=== PATIENT | male | born 1995 | race Two or more races ===

== ENCOUNTER 2019-06-16 16:11 | Emergency (ER) | payer SELFPAY ==
[2019-06-16] MEDS ORDERED: Sodium Chloride 0.9% 1,000 ML IV ONE (16:26)
[2019-06-16] MEDS ORDERED: HYDROmorphone 1 MG/ML Syringe IVPUSH PRN (16:26)
--- NOTE | 2019-06-16 17:06 | EDM.PDOC ---
ED [facility] GENERAL MEDICAL PROBLEM - General Chief Complaint: Abdominal Pain Stated Complaint: RIGHT SIDE PAIN Time Seen by Provider: 06/16/19 16:14 - History of Present Illness INITIAL COMMENTS - FREE TEXT/NARRATIVE: HPI 23-year-old male with no known pertinent past medical history presents for evaluation of ~1 hour of right lower quadrant pain that is moderate, nonradiating, and is provoked by pressure. No fevers, chills, nausea, dysuria, urinary frequency, diarrhea, constipation. M/S/F/SocHx notable for: please see HPI; remainder reviewed with patient and in chart. ROS: Negative constitutional, eye, cardiovascular, pulmonary, GI, , MSK, skin , neurologic, psychiatric, endocrine unless noted in the HPI. Exam HR 83, RR 17, BP 120/76, T 36.2C, SaO2 97% on room air. Gen: Pleasant, non-toxic appearing, resting in mild discomfort. HEENT: NC, AT, PEERL, EOMI. Resp: Clear to auscultation bilaterally, normal work of breathing, no accessory muscle usage. Card: Regular rate and rhythm with no murmurs, rubs, or gallops, extremities warm and well perfused. GI: right lower quadrant tenderness palpation, no rebound or guarding, remainder of abdomen nontender to palpation. : No suprapubic tenderness to palpation. MSK: No visible deformities, strength and tone without visually appreciable deficit. Skin: Normal color with no visible lesions. Neuro: alert and oriented 3, no facial asymmetry, vision and hearing WNL. Psych: Mood and affect appropriate. Labs / Imaging: pending. MDM Previous chart, nursing note, labs, imaging, and vitals reviewed. A: 23-year-old male with no known pertinent past medical history presents for evaluation of ~1 hour of right lower quadrant pain that is moderate, nonradiating, and is provoked by pressure. DDx: acute appendicitis, constipation, diverticulitis, mesenteric adenitis, epiploic appendagitis, biliary disease (cholelithiasis, choledocholithiasis, cholangitis, cholecystitis), pancreatitis, uretolithiasis. ED Course: patient evaluate, discuss recommendation for imaging, laboratory studies, and then further care as appropriate. PRN pain control order. Immediately after leaving the room the patient appears to have had a change of wish to receive care, discuss leaving AMA with the ED commercial service technician, signed AMA form and departed from the emergency department. I was unable to return to discuss this further with the patient prior to his departure. The patient was alert, oriented, and of sound mind and with intact judgment of the time of his evaluation and had good understanding of the plan of care and the concern for acute appendicitis as well as the concern that this could be a potentially life- threatening process. Impression: abdominal pain. Right Upper Abdomen Pain Score (Numeric/FACES): 7 - Related Data Allergies Allergy/AdvReac Type Severity Reaction Status Date / Time No Known Allergies Allergy Verified 06/16/19 16:16 Home Meds: Home Meds . [No Known Home Meds] 06/16/19 [History] Past Medical History - Past Health History Medical/Surgical History: Denies Medical/Surgical History HEENT History: Reports: None Cardiovascular History: Reports: None Respiratory History: Reports: None Gastrointestinal History: Reports: None Genitourinary History: Reports: None Musculoskeletal History: Reports: None Neurological History: Reports: None Psychiatric History: Reports: None Endocrine/Metabolic History: Reports: None Hematologic History: Reports: None Immunologic History: Reports: None Oncologic (Cancer) History: Reports: None Dermatologic History: Reports: None - Infectious Disease History Infectious Disease History: Reports: None - Past Surgical History Head Surgeries/Procedures: Reports: None Social & Family History - Family History Family Medical History: Noncontributory - Tobacco Use Smoking Status *Q: Current Every Day Smoker Years of Tobacco use: 1 Packs/Tins Daily: 0.5 Used Tobacco, but Quit: No Second Hand Smoke Exposure: No - Caffeine Use Caffeine Use: Reports: Soda - Recreational Drug Use Recreational Drug Use: No ED ROS GENERAL - Review of Systems Review Of Systems: See Below ED EXAM, GENERAL - Physical Exam Exam: See Below Course - Vital Signs Last Recorded V/S: Last Vital Signs Temp 36.2 C 06/16/19 16:16 Pulse 83 06/16/19 16:16 Resp 17 06/16/19 16:16 BP 120/76 06/16/19 16:16 Pulse Ox 97 06/16/19 16:16 - Orders/Labs/Meds Orders: Active Orders 24 hr Category Date Time Status Communication Order [RC] STAT Care 06/16/19 16:26 Inactive Meds: Medications Discontinued Medications Generic Name Dose Route Start Last Admin Trade Name Freq PRN Reason Stop Dose Admin Hydromorphone HCl 0.5 - 1 mg 06/16/19 16:26 Dilaudid IVPUSH Q1H PRN Pain Sodium Chloride 1,000 mls @ 1,000 mls/hr 06/16/19 16:26 06/16/19 16:41 Normal Saline IV 06/16/19 17:25 Not Given .Bolus ONE Departure - Departure Time of Disposition: 17:05 Disposition: Against Medical Advice 07 Clinical Impression: Abdominal pain - Discharge Information Referrals: PCP,None [Primary Care Provider] - Forms: ED Department Discharge Sepsis Event Note - Evaluation Sepsis Screening Result: No Definite Risk - Focused Exam Vital Signs: Vital Signs Temp Pulse Resp BP Pulse Ox 06/16/19 16:16 36.2 C 83 17 120/76 97 Date Exam was Performed: 06/16/19 Time Exam was Performed: 17:05 - My Orders Last 24 Hours: My Active Orders 06/16/19 16:26 Communication Order [RC] STAT - Assessment/Plan Last 24 Hours: My Active Orders 06/16/19 16:26 Communication Order [RC] STAT
== END 2019-06-16 16:38 | disposition left against medical advice (07) ==
LOC: MW.ED 16:11
DX: R10.31 Right lower quadrant pain (principal); R10.11 Right upper quadrant pain; F17.210 Nicotine dependence, cigarettes, uncomplicated
CPT/HCPCS: 99282; 99283

== ENCOUNTER 2023-07-14 07:10 | Emergency (ER) | payer SELFPAY ==
[2023-07-14] MEDS: Dexamethasone 10 MG/ML SDV PO ONE (07:42)
== END 2023-07-14 07:53 | disposition home or self-care (01) ==
LOC: MW.ED 07:10
DX: J02.0 Streptococcal pharyngitis (principal)
CPT/HCPCS: 99283; J8540

== ENCOUNTER 2023-11-25 16:24 | Emergency (ER) | payer SELFPAY ==
[2023-11-25] MEDS: Lidocaine 2% Viscous Solution 15 ML UD PO ONE (17:07)
[2023-11-25] MEDS: Benzocaine 20% Topical Spray UD MUCMEM ONE (17:08)
== END 2023-11-25 17:28 | disposition home or self-care (01) ==
LOC: MW.ED 16:24
DX: K04.7 Periapical abscess without sinus (principal); Z75.8 Other problems related to medical facilities and other health care
CPT/HCPCS: 99282; A9270; 99283

== ENCOUNTER 2024-12-24 09:23 | Day surgery (SDC) | payer SELFPAY ==
[~2024-12-24 09:23] MED LIST: Albuterol 0.083% 2.5 MG/3 ML Neb Soln NEB PRN; Naloxone 0.4 MG/ML SDV IVPUSH PRN; Ondansetron 4 MG/2 ML SDV IVPUSH PRN; ceFAZolin 2 GM in Water For Injection, Sterile 20 ML IVPUSH ONE; fentaNYL 50 MCG/ML SDV IVPUSH PRN
[2024-12-24] MEDS ORDERED: dexmedeTOMIDine HCl 200 MCG/2 ML SDV ONE (09:28)
[2024-12-24] MEDS ORDERED: Ropivacaine 0.5% 5 MG/ML 30 ML SDV ONE (09:33)
[2024-12-24] MEDS ORDERED: propofoL 500 MG/50 ML 50 ML ONE (09:49)
[2024-12-24] MEDS ORDERED: fentaNYL 100 MCG/2 ML SDV ONE ×2 (09:50→13:22)
[2024-12-24] MEDS: Lactated Ringers 1,000 ML IV SCH (09:59)
[2024-12-24] MEDS ORDERED: Dexamethasone 4 MG/ML 5 ML MDV ONE (10:51)
[2024-12-24] MEDS ORDERED: Ondansetron 4 MG/2 ML SDV ONE (10:51)
[2024-12-24] MEDS ORDERED: Ketorolac 30 MG/ML SDV ONE (13:22)
== END 2024-12-24 15:15 | disposition home or self-care (01) ==
LOC: MW.SDS 09:23
PROVIDERS: ATTEND Surgery
DX: K40.20 Bilateral inguinal hernia, without obstruction or gangrene, not specified as recurrent (principal); K42.9 Umbilical hernia without obstruction or gangrene; D17.6 Benign lipomatous neoplasm of spermatic cord; E66.9 Obesity, unspecified; Z68.32 Body mass index [BMI] 32.0-32.9, adult; Z87.891 Personal history of nicotine dependence
CPT/HCPCS: 00840; 64488; A9270-GY; C1781; J0665; J0690; J1100; J1885; J2405; J2704; J2795; J3010; J3490; J7120